=== PATIENT | female | born 1990 | race Caucasian/White ===

== ENCOUNTER 2024-05-11 20:00 | Emergency (ER) | payer MEDICARE, MEDICAID, SELFPAY ==
[2024-05-11 20:07] VITALS: BP 138/74; BP 138/84; PULSE 103; PULSE 112; RESP 16; TEMP 36.6; O2SAT 97; O2SAT 98; BMI 23.3
--- NOTE | 2024-05-11 20:18 | ED.GENADULT ---
HPI - General Adult General Chief complaint: Eye Problems Stated complaint: ? blindness to right eye Time Seen by Provider: 05/11/24 20:18 History of Present Illness ED Provider: Deepak NEUMANN narrative: The patient is a 33-year-old female comes to the emergency room on a Section 21 for evaluation a complaint of significant change of vision in the right eye. Patient says that at some point this morning, possibly about 8 or 10 hours ago, the vision in her left eye became fairly abruptly very cloudy. She says she can only see outlines with her right eye. She says the vision in her left eye is normal. She has no other complaints. She initially said that she had no pain. Related Data Previous Rx's ?Medication ?Instructions ?Recorded erythromycin 5 mg/gram (0.5 %) eye 0.5 inch ophthalmic (eye) QID #3.5 05/12/24 ointment grams Allergies Allergy/AdvReac Type Severity Reaction Status Date / Time benztropine [From Cogentin] AdvReac Unknown Verified 05/11/24 20:12 bupropion [From Wellbutrin] AdvReac Unknown Verified 05/11/24 20:12 NSAIDS (Non-Steroidal AdvReac Unknown Verified 05/11/24 20:12 Anti-Inflamma PMFSH Social History Social History Advance Directives: No Advance Directives Information Provided: No Physical Exam ED Vital Signs: Vital Signs - 24 hr 05/11/24 20:07 05/11/24 22:18 Temperature 97.8 F 98.0 F Pulse Rate 103 H 98 Respiratory Rate 16 18 Blood Pressure 138/74 Pulse Oximetry 97 98 Oxygen Delivery Method Room Air Room Air BMI result Body Mass Index 23.3 Const Other: The patient is awake, alert, pleasant, cooperative. She does not appear in distress or ill. [facility] Head: Yes normal to inspection Mouth: Normal oral and palatal mucosa present Teeth and gingiva: other (The patient is edentulous) Throat: Yes posterior oropharynx normal Eyes Other: Pupils are round, equal, and reactive to light. Extraocular movements are intact. Conjunctivae are clear. Eyelids are normal. Funduscopic exam was unremarkable. The patient reports that she can only see outlines and shades of light and dark. Bedside ultrasound shows no retinal abnormalities. Slit-lamp exam revealed no obvious abnormalities. There was no perilimbal flushing. Conjunctiva was clear. The cornea appeared clear. Pupillary response to light was appropriate and brisk. Fluorescein staining revealed what may have been some very minor peripheral punctate uptake of dye. No jose corneal abrasion. Neck Neck: Yes normal visual inspection, Yes full ROM, Yes no lymphadenopathy and Yes no meningeal signs Resp Effort & Inspection: normal respiratory effort Auscultation: clear to auscultation bilaterally Cardio Rate: regular rate Rhythm: regular rhythm Heart sounds: S1 normal heart sound present and S2 normal heart sound present Skin General skin exam: no rashes or lesions noted Neuro Other: The patient is awake and alert. She has a normal level of alertness and I believe her mental status is at her baseline mental status. Face is symmetrical. The eyes are entirely normal to appearance. Pupils are round, equal, and reactive to light. Extraocular movements are intact. Patient reports very poor vision in the right eye. She reports excellent vision in the left eye. She does not seem to have a visual field deficit in the right eye and seems to be able to see wiggling fingers. Additionally, at times when the left eye (the good eye) was covered with an eye patch, I had the impression that her vision in the right eye was fairly good. Speech is clear. She moves all extremities normally and has a normal gait and is otherwise neurologically intact. General: no meningeal signs Extrem Other: No calf swelling or tenderness Medications Administered Discontinued Medications Generic Name Dose Route Start Last Admin Trade Name Freq PRN Reason Stop Dose Admin Erythromycin 1 cm 05/12/24 00:33 05/12/24 00:50 Erythromycin Base 0.5% Oph Oin 1 Gm Tube EYE-RIGHT 05/12/24 00:34 1 cm ONCE ONE Administration Fluorescein Sodium 1 strip 05/11/24 22:47 05/11/24 23:23 Fluorescein Sodium Strip EYE-RIGHT 05/11/24 22:48 1 strip ONCE ONE Administration Tetracaine HCl 3 drop 05/11/24 23:00 05/11/24 23:24 Tetracaine Hcl/Pf 0.5% Oph Kylah 4 Ml Drops EYE-RIGHT 05/11/24 23:01 3 drop ONCE ONE Administration Medical Decision Making Medical Decision Making [facility] Narrative: The patient is a 33-year-old female who is currently a psychiatric inpatient at [facility] who presented to the emergency room stating that she had developed acute severe diminished vision in the right eye early this morning. When she 1st arrived here she denied having any pain associated with this. On exam there was no apparent abnormality to the right eye aside from her complaint of difficulty seeing. Bedside ultrasound of the right eye did not reveal any retinal abnormalities. A 1 point I had covered the left eye with a patch and while I was looking at her eye smiled. The patient then seemed to smile and giggle. He gave me the impression that her right eye was capable of seeing much more than she said she was able to see. The the patient was in the emergency room for a long time and my interactions with her were intermittent. Ultimately the patient started complaining of pain in the right eye and said that she felt as if she had a scratch in the eye. This was not a complaint she had made initially at all. I administered tetracaine eyedrops to the right eye to facilitate fluorescein staining. Briefly after receiving the tetracaine the patient said she could see my face normally with the right eye (left eye covered), however she again later said that she could see very little out of the right eye. Fluorescein staining revealed what I thought might be some very slight peripheral punctate uptake. The patient is not a contact lens wear. I do not really have a high suspicion that the patient has a true keratitis. There was no corneal abrasion. Ultimately I felt that the patient probably did not have a true ophthalmological emergency requiring further evaluation tonight. She will be started on a course of erythromycin ointment. Unfortunately Myla Chambers will likely not have the capacity to have her seen a an ophthalmology office as an outpatient because the patient is on a section 12 and apparently her behaviors at the psychiatric facility are such that the staff anticipates a long stay. Apparently a lot of colds have been called because of her behaviors. The patient should return to the emergency room if worse. Lab Data 05/11/24 21:13 05/11/24 21:13 Labs: Lab Results 05/11/24 Range/Units 21:13 WBC 6.6 (4.8-10.8) X10*3/uL RBC 3.64 L (4.20-5.50) X10*6/uL Hgb 11.2 L (12.0-16.0) g/dl Hct 31.9 L (37.0-47.0) % MCV 87.6 (80.0-98.0) fL MCH 30.8 (27.0-33.0) pg MCHC 35.1 H (31.0-35.0) g/dl RDW 13.2 (11.0-16.0) % Plt Count 99 L (160-400) X10*3/uL MPV 10.1 (9.4-12.3) fL Immature Gran % (Auto) 0.9 H (0.0-0.4) % Neut % (Auto) 42.3 L (45-73) % Lymph % (Auto) 39.5 (20-40) % [place] % (Auto) 16.5 H (2-11) % Eos % (Auto) 0.5 (0-4) % Baso % (Auto) 0.3 (0-2) % Lymph # (Auto) 2.6 (1.2-4.9) X10*3/uL [place] # (Auto) 1.1 (0.1-1.2) X10*3/uL Eos # (Auto) 0.0 (0.0-0.4) X10*3/uL Baso # (Auto) 0.0 (0.0-0.2) X10*3/uL Abs Immat Gran (auto) 0.06 H (0.00-0.03) X10*3/uL Absolute Neuts (auto) 2.8 (2.0-8.3) x10*3/uL Absolute Nucleated RBC 0.000 (0.0-0.012) X10*3/uL Nucleated RBC % (auto) 0.0 (0.0-0.2) /100WBC Smear Tech's Comments VERIFIED ESR 2 (0-20) MM/HR Sodium 144 (135-145) mmol/L Potassium 4.7 (3.3-5.1) mmol/L Chloride 112 H (96-108) mmol/L Carbon Dioxide 25 (22-29) mmol/L Anion Gap 12 (12-20) BUN 9 (9-16) mg/dL Creatinine 0.72 (0.5-1.4) mg/dL Estim Creat Clear Calc 101.8 Estimated GFR > 60 Random Glucose 176 H (60-115) mg/dL Calcium 9.4 (8.4-10.2) mg/dL Total Bilirubin 0.2 (0.0-1.0) mg/dL Direct Bilirubin < 0.2 (0.0-0.5) mg/dL AST 26 (5-31) U/L ALT 15 (0-31) U/L Alkaline Phosphatase 74 (39-117) U/L C-Reactive Protein 0.13 (< or = 0.50) mg/dL Total Protein 6.3 L (6.5-8.0) g/dL Albumin 4.0 (3.5-5.0) g/dL Beta HCG, Quant < 2 mIU/mL Discharge Plan Discharge Clinical Impression: Discomfort of right eye, Decreased vision of right eye, Keratitis Patient Disposition: Home, Self-Care Additional Instructions: There may be some very slight abnormalities on your right cornea. You have been started on erythromycin ointment, an antibiotic, which I hope will help. My hope is that you will be able to see an antique clock repairer soon. I have provided the name and number of our local antique clock repairer in case you can be seen there. If significantly worse return to the emergency room for further evaluation. Prescriptions: New erythromycin 5 mg/gram (0.5 %) ointment 0.5 inch ophthalmic (eye) QID Qty: 3.5 0RF Referrals: Maycol Pratt [Physician] - () Yuriy Lim [facility] [Outside] Print Language: Lithuanian
--- NOTE | 2024-05-11 20:25 | PC.NURSE ---
bilat eyes are PERRLA. pt is following with both eyes. MD at bedside for primary eval at this time. pt is on a sec 21 so 1:1 sitter at bedside.
--- NOTE | 2024-05-11 20:51 | ECG_ITS ---
Test Reason : VISION CHANGES Blood Pressure : / mmHG Vent. Rate : 102 BPM Atrial Rate : 102 BPM P-R Int : 138 ms QRS Dur : 074 ms QT Int : 334 ms P-R-T Axes : 054 031 080 degrees QTc Int : 435 ms Sinus tachycardia Nonspecific ST and T wave abnormality Abnormal ECG No previous ECGs available Referred By: Dano Sotelo Electronically Signed By:VALENTINE AVINA
[2024-05-11 21:42] LABS: Alanine Aminotransferase 15 U/L (0-31); Alkaline Phosphatase 74 U/L (39-117); Anion Gap 12 (12-20); Aspartate Amino Transferase 26 U/L (5-31); Bilirubin Direct < 0.2 mg/dL (0.0-0.5); Bilirubin Total 0.2 mg/dL (0.0-1.0); Blood Urea Nitrogen 9 mg/dL (9-16); C Reactive Protein 0.13 mg/dL (< or = 0.50); Calcium 9.4 mg/dL (8.4-10.2); Carbon Dioxide 25 mmol/L (22-29); Chloride 112 mmol/L (96-108); Creatinine Clr Calc Pharmacy 101.8; Estimated Glomerular Filt Rate > 60; Glucose Random 176 mg/dL (60-115); HCG Quantitative < 2 mIU/mL; Potassium 4.7 mmol/L (3.3-5.1); Sodium 144 mmol/L (135-145); Total Protein 6.3 g/dL (6.5-8.0)
[2024-05-11 21:53] LABS: Eosinophils Percent Auto 0.5 % (0-4); Imm Gran Abs Auto 0.06 X10*3/uL (0.00-0.03); Imm Gran Pct Auto 0.9 % (0.0-0.4); MANUAL DIFF FLAG SCAN; PLT CLUMP 1; SCAN SMEAR FLAG 1
[2024-05-11 21:54] LABS: Erythrocyte Sedimentation Rate 2 MM/HR (0-20)
[2024-05-11 21:55] LABS: Basophils Percent Auto 0.3 % (0-2); Hematocrit 31.9 % (37.0-47.0); Hemoglobin 11.2 g/dl (12.0-16.0); Lymphocytes Absolute Auto 2.6 X10*3/uL (1.2-4.9); Lymphocytes Percent Auto 39.5 % (20-40); Mean Corpuscular HGB Conc 35.1 g/dl (31.0-35.0); Mean Corpuscular Hemoglobin 30.8 pg (27.0-33.0); Mean Corpuscular Volume 87.6 fL (80.0-98.0); Mean Platelet Volume 10.1 fL (9.4-12.3); Monocytes Absolute Auto 1.1 X10*3/uL (0.1-1.2); Monocytes Percent Auto 16.5 % (2-11); Neutrophils Absolute Auto 2.8 x10*3/uL (2.0-8.3); Neutrophils Percent Auto 42.3 % (45-73); Red Blood Count 3.64 X10*6/uL (4.20-5.50); Red Cell Distribution Width 13.2 % (11.0-16.0)
[2024-05-11 21:56] LABS: Platelet Count 99 X10*3/uL (160-400); White Blood Count 6.6 X10*3/uL (4.8-10.8)
[2024-05-11 22:18] VITALS: PULSE 98; RESP 18; TEMP 36.7; O2SAT 98
[2024-05-11 23:03] LABS: SLIDE REVIEW VERIFIED
[2024-05-11] MEDS: Fluorescein Sodium STRIP 1 STRIP EYE-RIGHT (23:23)
[2024-05-11] MEDS: Tetracaine HCl/PF 0.5% Oph Sol 4 ML DROPS 3 DROP EYE-RIGHT (23:24)
[2024-05-12] MEDS: Erythromycin Base 0.5% Oph Oin 1 GM TUBE 1 CM EYE-RIGHT (00:50)
[2024-05-12 00:51] VITALS: BP 130/80; PULSE 95; RESP 16; TEMP 36.7; O2SAT 96
--- NOTE | 2024-05-12 01:09 | MHC.EDTECH ---
Reji called @0101 for transport back to facility,ETA of 30mins.
[2024-05-12 02:30] VITALS: BP 130/80; PULSE 95; RESP 16; TEMP 36.7; O2SAT 96
== END 2024-05-12 02:31 | disposition home or self-care (01) ==
PROVIDERS: Emergency Provider Emergency Medicine
DX: H54.61 Unqualified visual loss, right eye, normal vision left eye (principal); H16.8 Other keratitis; R00.0 Tachycardia, unspecified; R10.2 Pelvic and perineal pain; Z79.899 Other long term (current) drug therapy
CPT/HCPCS: 36415; 80048; 80076; 84702; 85025; 85652; 86140; 93005; 99284